=== PATIENT | male | born 1950 | race Caucasian/White ===

== ENCOUNTER 2020-12-28 10:58 | Outpatient (CLI) | payer OTHER ==
[~2020-12-28 10:58] MED LIST: ALTACE10 MG PO; METFORMIN HCL500 MG PO; PRANDIN; ZOCOR20 MG PO
== END 2020-12-28 11:09 | disposition home or self-care (01) ==
LOC: RAD 10:58
PROVIDERS: ATTEND Orthopaedic Surgery
DX: S60.221A Contusion of right hand, initial encounter (principal); M79.644 Pain in right finger(s)

== ENCOUNTER → 2021-02-02 | Outpatient (CLI) | payer OTHER | END | disposition home or self-care (01) | LOC: LAB 10:03 | PROVIDERS: ATTEND Orthopaedic Surgery | DX: E56.1 Deficiency of vitamin K (principal); E55.9 Vitamin D deficiency, unspecified; M85.9 Disorder of bone density and structure, unspecified ==

== ENCOUNTER 2021-04-07 13:24 | Outpatient (CLI) | payer OTHER | END 2021-04-07 13:50 | disposition home or self-care (01) | LOC: NUCLEAR 13:24 | PROVIDERS: ATTEND Orthopaedic Surgery | DX: M81.0 Age-related osteoporosis without current pathological fracture (principal) ==

== ENCOUNTER 2021-12-04 08:29 | Outpatient (CLI) | payer OTHER ==
[2021-12-04] MEDS ORDERED: JANUVIA100 MG PO (10:13)
== END 2021-12-04 08:38 | disposition home or self-care (01) ==
LOC: RAD 08:29
PROVIDERS: ATTEND Chiropractor
DX: M54.2 Cervicalgia (principal); M54.50 Low back pain, unspecified; M54.6 Pain in thoracic spine

== ENCOUNTER 2021-12-04 09:50 | Emergency (ER) | payer OTHER ==
[~2021-12-04] VITALS: Ht 154.9 cm; Wt 47.6 kg
[2021-12-04] MEDS ORDERED: JANUVIA100 MG PO (10:13)
== END 2021-12-04 14:09 | disposition home or self-care (01) ==
LOC: ER 09:50
DX: S80.11XA Contusion of right lower leg, initial encounter (principal); S70.01XA Contusion of right hip, initial encounter; W18.39XA Other fall on same level, initial encounter; Y93.73 Activity, racquet and hand sports; Y92.89 Other specified places as the place of occurrence of the external cause; M54.30 Sciatica, unspecified side

== ENCOUNTER 2022-09-06 08:10 | Outpatient (CLI) | payer OTHER ==
[~2022-09-06 08:10] MED LIST changes: +JANUVIA100 MG PO
== END 2022-09-06 08:16 | disposition home or self-care (01) ==
LOC: NUCLEAR 08:10
PROVIDERS: ATTEND Internal Medicine
DX: I73.9 Peripheral vascular disease, unspecified (principal); E78.9 Disorder of lipoprotein metabolism, unspecified; E11.9 Type 2 diabetes mellitus without complications

== ENCOUNTER 2022-09-07 07:59 | Outpatient (CLI) | payer OTHER | END 2022-09-07 08:02 | disposition home or self-care (01) | LOC: NUCLEAR 07:59 | PROVIDERS: ATTEND Internal Medicine | DX: I73.9 Peripheral vascular disease, unspecified (principal); E78.9 Disorder of lipoprotein metabolism, unspecified; E11.9 Type 2 diabetes mellitus without complications ==